=== PATIENT | male | born 2000 | race Caucasian/White ===

== ENCOUNTER 2019-08-22 22:35 | Emergency (ER) | payer OTHER ==
--- NOTE | 2019-08-22 23:26 | EDM.PDOC ---
ED HPI GENERAL MEDICAL PROBLEM - General Chief Complaint: Upper Extremity Injury/Pain Stated Complaint: R SHOULDER INJUERY Time Seen by Provider: 08/22/19 23:00 Source of Information: Reports: Patient History Limitations: Reports: No Limitations - History of Present Illness INITIAL COMMENTS - FREE TEXT/NARRATIVE: 19-year-old male running after a dog slipped and fell on hit his right shoulder on the ground. This happened about 12 hours ago, however he is having intense pain and cannot move his arm so wanted it checked. No other injury. Onset: Sudden Duration: Hour(s): (12 hours ago) Location: Reports: Upper Extremity, Right Associated Symptoms: Reports: No Other Symptoms Right Shoulder Pain Score (Numeric/FACES): 8 - Related Data Allergies Allergy/AdvReac Type Severity Reaction Status Date / Time Penicillins Allergy Hives Verified 08/22/19 22:58 tramadol Allergy Hives Verified 08/22/19 22:58 Home Meds: Home Meds NK [No Known Home Meds] 08/22/19 [History] Past Medical History Gastrointestinal History: Reports: Other (See Below) Other Gastrointestinal History: lipoma removal on upper abd Musculoskeletal History: Reports: Fracture Social & Family History - Family History Family Medical History: Noncontributory - Tobacco Use Smoking Status *Q: Current Every Day Smoker Years of Tobacco use: 4 Packs/Tins Daily: 0.5 - Caffeine Use Caffeine Use: Reports: Energy Drinks - Recreational Drug Use Recreational Drug Use: No Review of Systems - Review of Systems Review Of Systems: See Below Constitutional: Denies: Fever Respiratory: Reports: No Symptoms Cardiovascular: Reports: No Symptoms GI/Abdominal: Reports: No Symptoms Musculoskeletal: Reports: Shoulder Pain (Right side) Skin: Denies: Bruising Neurological: Denies: Paresthesia (No numbness or paresthesias to the arm) ED EXAM, GENERAL - Physical Exam Exam: See Below Exam Limited By: No Limitations General Appearance: Alert, No Apparent Distress Head: Atraumatic Neck: Non-Tender Respiratory/Chest: No Respiratory Distress Extremities: Other (Shoulders look symmetric grossly. On palpation is very tender over the distal right clavicle and AC joint area, but there is no step- off or deformity) Course - Vital Signs Last Recorded V/S: Last Vital Signs Temp 97.5 F 08/22/19 22:59 Pulse 76 08/22/19 22:59 Resp 16 04/04/20 22:59 BP 140/88 08/22/19 22:59 Pulse Ox 99 08/22/19 22:59 - Orders/Labs/Meds Orders: Active Orders 24 hr Category Date Time Status Shoulder Comp Rt [CR] Stat Exams 08/22/19 23:09 Taken - Re-Assessments/Exams Free Text/Narrative Re-Assessment/Exam: 08/22/19 23:26 X-ray of the right shoulder looks normal. Patient requested a sling. Departure - Departure Time of Disposition: 23:48 Disposition: Home, Self-Care 01 Clinical Impression: Contusion of right shoulder Qualifiers: Encounter type: initial encounter Qualified Code(s): S40.011A - Contusion of right shoulder, initial encounter - Discharge Information Instructions: Contusion, [id number] Referrals: PCP,None [Primary Care Provider] - Forms: ED Department Discharge Care Plan Goals: Wear sling for comfort for the next several days, a regular dose of ibuprofen or naproxen would be helpful. Take the arm out of the sling for gentle range of motion a few times a day and increase activity as tolerated. Recheck in 7 to 10 days if not improving satisfactorily. Sepsis Event Note - Evaluation Sepsis Screening Result: No Definite Risk - Focused Exam Vital Signs: Vital Signs Temp Pulse Resp BP Pulse Ox 08/22/19 22:59 97.5 F 76 16 140/88 99 08/22/19 22:54 97.5 F 76 16 140/88 99 Date Exam was Performed: 08/23/19 Time Exam was Performed: 01:59 - My Orders Last 24 Hours: My Active Orders 08/22/19 23:09 Shoulder Comp Rt [CR] Stat - Assessment/Plan Last 24 Hours: My Active Orders 08/22/19 23:09 Shoulder Comp Rt [CR] Stat
--- NOTE | 2019-08-24 10:14 | CR ---
Shoulder Comp Rt CLINICAL HISTORY: Fall, pain FINDINGS: There is no acute fracture or dislocation in the right shoulder. Articular surfaces are smooth Impression: Negative
== END 2019-08-22 23:49 | disposition home or self-care (01) ==
LOC: JP.ED 22:35
DX: S40.011A Contusion of right shoulder, initial encounter (principal); Z88.0 Allergy status to penicillin; Z88.6 Allergy status to analgesic agent; W01.0XXA Fall on same level from slipping, tripping and stumbling without subsequent striking against object, initial encounter
CPT/HCPCS: 73030-26-RT; 73030-RT; 99283-25

== ENCOUNTER 2019-08-25 20:22 | Emergency (ER) | payer OTHER ==
--- NOTE | 2019-08-25 20:44 | EDM.PDOC ---
ED HPI GENERAL MEDICAL PROBLEM - General Chief Complaint: Upper Extremity Injury/Pain Stated Complaint: RIGHT SHOULDER PAIN Time Seen by Provider: 08/25/19 20:30 Source of Information: Reports: Patient History Limitations: Reports: No Limitations - History of Present Illness INITIAL COMMENTS - FREE TEXT/NARRATIVE: 19-year-old male returns with right shoulder pain. He was seen 3 days ago and likely has an AC injury, although a rotator cuff injury is possible as well. X- ray was negative, he returns today for pain control and an inability to abduct the arm past 10 or 20 degrees. No paresthesias. Onset: Sudden Duration: Day(s): (3 days ago) Location: Reports: Upper Extremity, Right Associated Symptoms: Reports: No Other Symptoms Right Upper Shoulder Pain Score (Numeric/FACES): 7 - Related Data Allergies Allergy/AdvReac Type Severity Reaction Status Date / Time Penicillins Allergy Hives Verified 08/25/19 20:37 tramadol Allergy Hives Verified 08/25/19 20:37 Home Meds: Home Meds Hydrocodone/Acetaminophen [Hydrocodon-Acetaminophen 5-325] 1 tab PO Q6H [History] Past Medical History Gastrointestinal History: Reports: Other (See Below) Other Gastrointestinal History: lipoma removal on upper abd Musculoskeletal History: Reports: Fracture Social & Family History - Family History Family Medical History: Noncontributory - Caffeine Use Caffeine Use: Reports: Energy Drinks Review of Systems - Review of Systems Review Of Systems: See Below Constitutional: Denies: Fever Respiratory: Reports: No Symptoms Cardiovascular: Reports: No Symptoms Musculoskeletal: Denies: Neck Pain Skin: Denies: Bruising, Rash, Erythema Neurological: Reports: No Symptoms ED EXAM, GENERAL - Physical Exam Exam: See Below Exam Limited By: No Limitations General Appearance: Alert, No Apparent Distress Neck: Supple, Non-Tender Respiratory/Chest: No Respiratory Distress Extremities: Other (Sling was removed, shoulder reexamined. Patient is still real tender over the AC joint area but there is no step-off or crepitus. He is unable to actively abduct his arm past 20 degrees, and has marked difficulty holding his arm out at 90 degrees after passive abduction.) Course - Vital Signs Last Recorded V/S: Last Vital Signs Temp 97.3 F 08/25/19 20:34 Pulse 82 08/25/19 20:34 Resp 16 08/25/19 20:34 BP 145/90 H 08/25/19 20:34 Pulse Ox 97 08/25/19 20:34 - Orders/Labs/Meds Orders: Active Orders 24 hr Category Date Time Status Consult to Orthopedic Clinic [CONS] Routine Cons 08/25/19 20:34 Active - Re-Assessments/Exams Free Text/Narrative Re-Assessment/Exam: 08/25/19 20:43 Patient was given an additional 10 hydrocodone to use for extra pain control, and I asked him to see Dr. Espitia in consultation over the next 48 hours. Information was obtained to contact the patient and hopefully he can be seen in the next few days. He can continue to increase activity if tolerated. Departure - Departure Time of Disposition: 20:53 Disposition: Home, Self-Care 01 Clinical Impression: Sprain of right shoulder Qualifiers: Encounter type: subsequent encounter Shoulder sprain type: other part of shoulder region Qualified Code(s): S43.491D - Other sprain of right shoulder joint, subsequent encounter - Discharge Information Instructions: Shoulder Sprain Referrals: PCP,None [Primary Care Provider] - Forms: ED Department Discharge Care Plan Goals: Continue to wear the sling for comfort, and anti-inflammatory is beneficial and add stronger pain medication if needed. Recheck with Dr. Espitia in the next few days as discussed, they should be contacting you tomorrow for a time. Sepsis Event Note - Evaluation Sepsis Screening Result: No Definite Risk - Focused Exam Vital Signs: Vital Signs Temp Pulse Resp BP Pulse Ox 08/25/19 20:34 97.3 F 82 16 145/90 H 97 Date Exam was Performed: 08/25/19 Time Exam was Performed: 21:57 - My Orders Last 24 Hours: My Active Orders 08/25/19 20:34 Consult to Orthopedic Clinic [CONS] Routine - Assessment/Plan Last 24 Hours: My Active Orders 08/25/19 20:34 Consult to Orthopedic Clinic [CONS] Routine
== END 2019-08-25 20:53 | disposition home or self-care (01) ==
LOC: JP.ED 20:22
DX: S93.491A Sprain of other ligament of right ankle, initial encounter (principal); Z88.0 Allergy status to penicillin; Z88.5 Allergy status to narcotic agent; X58.XXXA Exposure to other specified factors, initial encounter
CPT/HCPCS: 99283

== ENCOUNTER 2019-11-19 23:36 | Emergency (ER) | payer OTHER ==
--- NOTE | 2019-11-20 02:00 | EDM.PDOC ---
ED HPI GENERAL MEDICAL PROBLEM - General Chief Complaint: Upper Extremity Injury/Pain Stated Complaint: RIGHT SHOULDER INJURY Time Seen by Provider: 11/20/19 01:25 Source of Information: Reports: Patient History Limitations: Reports: No Limitations - History of Present Illness INITIAL COMMENTS - FREE TEXT/NARRATIVE: Patient presents for evaluation of pain in the right shoulder region after he slipped getting out of the shower tonight and landed on his right shoulder. There was no loss of consciousness. Since that time, if he keeps his right arm close to his side, it feels better but not pain-free. Overhead movements of the arm are extremely uncomfortable but rotational movements of the arm are not too bad. The left side was not injured. He has some discomfort in the vicinity of the right shoulder blade but the majority of the pain is lateral to the right shoulder. Onset: Today Duration: Hour(s): Location: Reports: Upper Extremity, Right Quality: Reports: Ache, Dull Severity: Moderate Improves with: Reports: None Worsens with: Reports: Movement Associated Symptoms: Reports: No Other Symptoms Right Shoulder Pain Score (Numeric/FACES): 7 - Related Data Allergies Allergy/AdvReac Type Severity Reaction Status Date / Time acetaminophen Allergy Vomiting Verified 11/19/19 23:56 [From Tylenol-Codeine #3] codeine Allergy Vomiting Verified 11/19/19 23:56 [From Tylenol-Codeine #3] Penicillins Allergy Hives Verified 08/25/19 20:37 tramadol Allergy Hives Verified 08/25/19 20:37 Home Meds: Home Meds Hydrocodone/Acetaminophen [Hydrocodon-Acetaminophen 5-325] 1 tab PO Q6H 08/25/19 [History] Ketorolac [Toradol] 10 mg PO TID PRN 11/19/19 [History] Past Medical History Gastrointestinal History: Reports: Other (See Below) Other Gastrointestinal History: lipoma removal on upper abd Musculoskeletal History: Reports: Fracture, Other (See Below) Other Musculoskeletal History: recurrent right shoulder injuries Neurological History: Reports: Seizure - Past Surgical History GI Surgical History: Reports: Hernia, Inguinal Social & Family History - Family History Family Medical History: Noncontributory - Tobacco Use Smoking Status *Q: Current Every Day Smoker Years of Tobacco use: 6 Packs/Tins Daily: 0.5 Second Hand Smoke Exposure: No - Caffeine Use Caffeine Use: Reports: None - Recreational Drug Use Recreational Drug Use: No Review of Systems - Review of Systems Review Of Systems: Comprehensive ROS is negative, except as noted in HPI. ED EXAM, GENERAL - Physical Exam Exam: See Below Free Text/Narrative:: This is a comfortable appearing male seated on the table in room 2. Exam Limited By: No Limitations General Appearance: Alert, No Apparent Distress Respiratory/Chest: No Respiratory Distress, No Accessory Muscle Use Cardiovascular: Regular Rate, Rhythm, Tachycardia Back Exam: Other (There is diffuse discomfort over the right scapula.) Extremities: Limited Range of Motion (Attempts at passive upward extension of the right humerus are met with pain. Internal and external rotation of the humerus with the arm hanging straight down are not particularly uncomfortable. The acromioclavicular joint is tender but no crepitus is felt.) Course - Vital Signs Last Recorded V/S: Last Vital Signs Temp 36.0 C L 11/19/19 23:58 Pulse 104 H 11/19/19 23:58 Resp 16 11/19/19 23:58 BP 144/92 H 11/19/19 23:58 Pulse Ox 97 11/19/19 23:58 - Re-Assessments/Exams Free Text/Narrative Re-Assessment/Exam: 11/20/19 03:21 X-ray of right shoulder ordered and reviewed by me shows no acute findings. The AC joint is normal in appearance. I think he has contused and strained the shoulder but do not see anything alarming. I recommend ice packs to the affected area 20 minutes off and on. He should use ibuprofen 800 mg 3 times a day or naproxen 440 mg twice a day for discomfort. 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 Questions answered. Departure - Departure Time of Disposition: 03:24 Disposition: Home, Self-Care 01 Clinical Impression: Contusion of shoulder, right Qualifiers: Encounter type: initial encounter Qualified Code(s): S40.011A - Contusion of right shoulder, initial encounter Sprain of right shoulder Qualifiers: Encounter type: subsequent encounter Shoulder sprain type: other part of shoulder region Qualified Code(s): S43.491D - Other sprain of right shoulder joint, subsequent encounter - Discharge Information Instructions: Contusion, [id number] Referrals: PCP,None [Primary Care Provider] - Forms: ED Department Discharge Additional Instructions: Cold packs to painful area 20 minutes off and on. Avoid painful movements of the shoulder to the extent possible. Ibuprofen 800 mg 3 times a day or naproxen 440 mg twice a day regularly over the next 5 days for pain. Recheck in primary care if not improved in 7 to 10 days. Sepsis Event Note (ED) - Evaluation Sepsis Screening Result: No Definite Risk - Focused Exam Vital Signs: Vital Signs Temp Pulse Resp BP Pulse Ox 11/19/19 23:58 36.0 C L 104 H 16 144/92 H 97 11/19/19 23:45 36.0 C L 104 H 16 144/92 H 97
--- NOTE | 2019-11-20 02:21 | CRLCR ---
INDICATION: Fall onto right shoulder region pain TECHNIQUE: Shoulder radiograph 3 views right COMPARISON: 08/22/2019 FINDINGS: Bone: No acute fractures or aggressive bone lesions are identified. Joint: The glenohumeral joint is unremarkable. The acromioclavicular joint is unremarkable. Soft tissue: Unremarkable. The visualized hemithorax is unremarkable in appearance. No radiopaque foreign bodies are seen. IMPRESSION: 1. No acute osseous injuries or abnormalities are noted. Dictated by: Mayur Soares MD @ 11/20/2019 02:20:51 (Electronically Signed)
== END 2019-11-20 02:37 | disposition home or self-care (01) ==
LOC: JP.ED 23:36
DX: S43.491D Other sprain of right shoulder joint, subsequent encounter (principal); F17.210 Nicotine dependence, cigarettes, uncomplicated; R00.0 Tachycardia, unspecified; Z88.0 Allergy status to penicillin; Z88.5 Allergy status to narcotic agent; Z88.6 Allergy status to analgesic agent; W01.0XXD Fall on same level from slipping, tripping and stumbling without subsequent striking against object, subsequent encounter
CPT/HCPCS: 73030-RT; 99283-25

== ENCOUNTER 2019-11-20 17:07 | Emergency (ER) | payer OTHER ==
--- NOTE | 2019-11-20 19:13 | EDM.PDOC ---
ED HPI GENERAL MEDICAL PROBLEM - General Chief Complaint: Upper Extremity Injury/Pain Stated Complaint: R SHOULDER PAIN Time Seen by Provider: 11/20/19 19:12 Source of Information: Reports: Patient History Limitations: Reports: No Limitations - History of Present Illness INITIAL COMMENTS - FREE TEXT/NARRATIVE: 19-year-old male injured his right shoulder last night when he fell into the wall while taking a shower. He was seen in the ER by Dr. Torres and x-ray was read as normal by the radiologist. The patient was advised to take OTC analgesics. He returns today because of distant and increased pain. He has increased pain with any movement of the right arm. He denies any injuries. He denies any neck pain. He has no prior neck problems. Right Shoulder Pain Score (Numeric/FACES): 8 - Related Data Allergies Allergy/AdvReac Type Severity Reaction Status Date / Time acetaminophen Allergy Vomiting Verified 11/20/19 18:50 [From Tylenol-Codeine #3] codeine Allergy Vomiting Verified 11/20/19 18:50 [From Tylenol-Codeine #3] Penicillins Allergy Hives Verified 11/20/19 18:50 tramadol Allergy Hives Verified 11/20/19 18:50 Home Meds: Home Meds Ketorolac [Toradol] 10 mg PO TID PRN 11/19/19 [History] Past Medical History Gastrointestinal History: Reports: Other (See Below) Other Gastrointestinal History: lipoma removal on upper abd Musculoskeletal History: Reports: Fracture, Other (See Below) Other Musculoskeletal History: recurrent right shoulder injuries Neurological History: Reports: Seizure - Past Surgical History GI Surgical History: Reports: Hernia, Inguinal Social & Family History - Family History Family Medical History: Noncontributory - Tobacco Use Smoking Status *Q: Current Every Day Smoker Years of Tobacco use: 5 Packs/Tins Daily: 0.5 - Caffeine Use Caffeine Use: Reports: None - Recreational Drug Use Recreational Drug Use: No Review of Systems - Review of Systems Review Of Systems: See Below Constitutional: Reports: No Symptoms Respiratory: Reports: No Symptoms Cardiovascular: Reports: No Symptoms Musculoskeletal: Reports: Other (Shoulder pain) Skin: Reports: No Symptoms Neurological: Denies: Numbness, Weakness ED EXAM, GENERAL - Physical Exam Exam: See Below Exam Limited By: No Limitations General Appearance: Alert, WD/WN, No Apparent Distress Peripheral Pulses: 4+: Radial (R) Extremities: Other (The patient has a normal-appearing right shoulder on inspection. External rotation is almost to 90 degrees as is abduction. He has tenderness on palpation of the anterior shoulder. No bony deformities were palpated.) Course - Vital Signs Text/Narrative:: This patient presents with a right shoulder injury sustained last night. He had an x-ray when he visited the ER last night and it was read as normal by the radiologist. He has pain with movement. His exam shows nearly 90 degrees of abduction. He has some restriction in external rotation. Palpation of the arm reveals no bony abnormalities. Neurovascular exam is normal and radial pulses good. The patient has a right shoulder strain. He was given a sling which she will use for couple days and then exercises as tolerated. He was given 4 tablets of Vicodin 5/325 mg 1 or 2 tablets every 6 hours as needed for pain. He can use OTC analgesics. He will follow-up with orthopedics or primary care next week if he is not improving. Last Recorded V/S: Last Vital Signs Temp 34.7 C L 11/20/19 18:51 Pulse 71 11/20/19 18:51 Resp 13 11/20/19 18:51 BP 127/85 11/20/19 18:51 Pulse Ox 96 11/20/19 18:51 - Orders/Labs/Meds Orders: Active Orders 24 hr Category Date Time Status DME for Discharge [COMM] Stat Oth 11/20/19 19:11 Ordered Departure - Departure Time of Disposition: 19:15 Disposition: Admitted As Inpatient 65 Condition: Good Clinical Impression: Right shoulder strain - Discharge Information *PRESCRIPTION DRUG MONITORING PROGRAM REVIEWED*: Yes *COPY OF PRESCRIPTION DRUG MONITORING REPORT IN PATIENT CAMMY: No Referrals: PCP,None [Primary Care Provider] - Forms: ED Department Discharge Additional Instructions: The arm sling as needed. Take Vicodin as needed for pain. Follow-up with her primary care provider next week if you have persistent problems and see no improvement. Return to the ER as needed. Sepsis Event Note (ED) - Evaluation Sepsis Screening Result: No Definite Risk - Focused Exam Vital Signs: Vital Signs Temp Pulse Resp BP Pulse Ox 11/20/19 18:51 34.7 C L 71 13 127/85 96 11/20/19 18:46 34.7 C L 71 13 127/85 96 - My Orders Last 24 Hours: My Active Orders 11/20/19 19:11 DME for Discharge [COMM] Stat - Assessment/Plan Last 24 Hours: My Active Orders 11/20/19 19:11 DME for Discharge [COMM] Stat
== END 2019-11-20 19:35 | disposition critical access hospital (66) ==
LOC: JP.ED 17:07
DX: S46.911A Strain of unspecified muscle, fascia and tendon at shoulder and upper arm level, right arm, initial encounter (principal); F17.210 Nicotine dependence, cigarettes, uncomplicated; Z88.5 Allergy status to narcotic agent; Z88.0 Allergy status to penicillin; Z79.899 Other long term (current) drug therapy; W18.2XXA Fall in (into) shower or empty bathtub, initial encounter
CPT/HCPCS: 99283

== ENCOUNTER 2019-11-24 20:40 | Emergency (ER) | payer OTHER ==
--- NOTE | 2019-11-24 21:32 | EDM.PDOC ---
ED HPI GENERAL MEDICAL PROBLEM - General Chief Complaint: Upper Extremity Injury/Pain Stated Complaint: RIGHT SHOULDER PAIN Time Seen by Provider: 11/24/19 21:32 Source of Information: Reports: Patient History Limitations: Reports: No Limitations - History of Present Illness INITIAL COMMENTS - FREE TEXT/NARRATIVE: 19 years old male patient presented to the ER with chief complaint of right shoulder pain. Patient had a fall and was seen few days ago and had a negative x-ray. Was given prescription for [place] and NSAIDs. Patient stated it was helping but he ran out of [place] today. Complaining of continuous pain with any movement. No swelling or erythema or deformity. No other complaints. - Related Data Allergies Allergy/AdvReac Type Severity Reaction Status Date / Time acetaminophen Allergy Vomiting Verified 11/24/19 21:28 [From Tylenol-Codeine #3] codeine Allergy Vomiting Verified 11/24/19 21:28 [From Tylenol-Codeine #3] Penicillins Allergy Hives Verified 11/24/19 21:28 tramadol Allergy Hives Verified 11/24/19 21:28 Home Meds: Home Meds Ketorolac [Toradol] 10 mg PO TID PRN 11/19/19 [History] Hydrocodone/Acetaminophen [Hydrocodon-Acetaminophen 5-325] 1 each PO ASDIRECTED 11/24/19 [History] Past Medical History Gastrointestinal History: Reports: Other (See Below) Other Gastrointestinal History: lipoma removal on upper abd Musculoskeletal History: Reports: Fracture, Other (See Below) Other Musculoskeletal History: recurrent right shoulder injuries Neurological History: Reports: Seizure - Past Surgical History GI Surgical History: Reports: Hernia, Inguinal Social & Family History - Family History Family Medical History: Noncontributory - Caffeine Use Caffeine Use: Reports: None Review of Systems - Review of Systems Review Of Systems: Comprehensive ROS is negative, except as noted in HPI. ED EXAM, GENERAL - Physical Exam Exam: See Below Exam Limited By: No Limitations General Appearance: Alert, WD/WN, No Apparent Distress Nose: Normal Inspection, Normal Mucosa, No Blood Head: Atraumatic, Normocephalic Neck: Normal Inspection, Supple, Non-Tender, Full Range of Motion Respiratory/Chest: No Respiratory Distress, Lungs Clear, Normal Breath Sounds, No Accessory Muscle Use, Chest Non-Tender Cardiovascular: Normal Peripheral Pulses, Regular Rate, Rhythm, No Edema, No Gallop, No JVD, No Murmur, No Rub Extremities: Normal Inspection, Limited Range of Motion, Other (Tenderness on palpation of the right shoulder. No erythema or swelling or deformity. CMS intact. Pain limitation of the range of motion.). No: Joint Swelling, Increased Warmth, Mottled Course - Vital Signs Last Recorded V/S: Last Vital Signs Temp 36.3 C 11/24/19 21:34 Pulse 73 11/24/19 21:34 Resp 16 11/24/19 21:34 BP 130/88 11/24/19 21:34 Pulse Ox 97 11/24/19 21:34 - Re-Assessments/Exams Free Text/Narrative Re-Assessment/Exam: 11/24/19 21:44 Patient was seen and examined shortly after arrival. Stable. Possible rotator cuff injury. Advised follow-up was his primary doctor for MRI of the right shoulder or orthopedic. Stated Tylenol and ibuprofen not helping. Requesting [place]. Given 6 more pills. 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 Maximum total amount of acetaminophen Jesika is for gram. Advised to ice it. Continue ibuprofen. Come back for any concern or any worsening symptom. Patient agrees with the plan. Stable for discharge. Departure - Departure Time of Disposition: 21:45 Disposition: Home, Self-Care 01 Condition: Good Clinical Impression: Shoulder pain, right - Discharge Information Referrals: PCP,None [Primary Care Provider] - Forms: ED Department Discharge Care Plan Goals: Advised follow-up was his primary doctor for MRI of the right shoulder or orth opedic. Stated Tylenol and ibuprofen not helping. Requesting [place]. Given 6 more pills. 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 Maximum total amount of acetaminophen Jesika is for gram. Advised to ice it. Continue ibuprofen. Come back for any concern or any worsening symptom. Patient agrees with the plan. Sepsis Event Note (ED) - Focused Exam Vital Signs: Vital Signs Temp Pulse Resp BP Pulse Ox 11/24/19 21:34 36.3 C 73 16 130/88 97 11/24/19 21:26 36.3 C 73 16 130/88 97 - Assessment/Plan Plan: Advised follow-up was his primary doctor for MRI of the right shoulder or orthopedic. Stated Tylenol and ibuprofen not helping. Requesting [place]. Given 6 more pills. 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 Maximum total amount of acetaminophen Jesika is for gram. Advised to ice it. Continue ibuprofen. Come back for any concern or any worsening symptom. Patient agrees with the plan.
== END 2019-11-24 22:03 | disposition home or self-care (01) ==
LOC: JP.ED 20:40
DX: M25.511 Pain in right shoulder (principal); Z88.5 Allergy status to narcotic agent; Z88.0 Allergy status to penicillin; Z88.6 Allergy status to analgesic agent
CPT/HCPCS: 99283

== ENCOUNTER 2019-12-27 20:59 | Emergency (ER) | payer OTHER ==
[2019-12-27] MEDS ORDERED: Acetaminophen 325 MG Tab PO ONE (22:00)
--- NOTE | 2019-12-27 22:03 | EDM.PDOC ---
ED HPI GENERAL MEDICAL PROBLEM - General Chief Complaint: Upper Extremity Injury/Pain Stated Complaint: FALL/RT SHOULDER PAIN Time Seen by Provider: 12/27/19 21:57 Source of Information: Reports: Patient, RN Notes Reviewed History Limitations: Reports: No Limitations - History of Present Illness INITIAL COMMENTS - FREE TEXT/NARRATIVE: 19-year-old gentleman presents emergency department a complaint of right shoulder pain, he injured himself earlier today when he fell on outstretched hand injuring his shoulder now he has difficulty raising his arm he can do about 15 degrees abduction before pain - Related Data Allergies Allergy/AdvReac Type Severity Reaction Status Date / Time acetaminophen Allergy Vomiting Verified 12/27/19 21:24 [From Tylenol-Codeine #3] codeine Allergy Vomiting Verified 12/27/19 21:24 [From Tylenol-Codeine #3] Penicillins Allergy Hives Verified 12/27/19 21:24 tramadol Allergy Hives Verified 12/27/19 21:24 Home Meds: Home Meds Ketorolac [Toradol] 10 mg PO TID PRN 11/19/19 [History] Past Medical History Gastrointestinal History: Reports: Other (See Below) Other Gastrointestinal History: lipoma removal on upper abd Musculoskeletal History: Reports: Fracture, Other (See Below) Other Musculoskeletal History: recurrent right shoulder injuries Neurological History: Reports: Seizure - Past Surgical History GI Surgical History: Reports: Hernia, Inguinal Social & Family History - Family History Family Medical History: Noncontributory - Tobacco Use Smoking Status *Q: Current Every Day Smoker Years of Tobacco use: 5 Packs/Tins Daily: 0.5 - Caffeine Use Caffeine Use: Reports: None Review of Systems - Review of Systems Review Of Systems: See Below Constitutional: Reports: No Symptoms Musculoskeletal: Reports: Shoulder Pain ED EXAM, GENERAL - Physical Exam Exam: See Below Free Text/Narrative:: Examination right shoulder I do not appreciate any specific point tenderness there is no erythema there is no edema there is no deformity noted has about 10 to 15 degrees abduction for movement before pain Exam Limited By: No Limitations General Appearance: Alert, WD/WN, No Apparent Distress Course - Vital Signs Last Recorded V/S: Last Vital Signs Temp 98.2 F 12/27/19 21:29 Pulse 70 12/27/19 21:29 Resp 16 12/27/19 21:29 BP 140/94 H 12/27/19 21:29 Pulse Ox 98 12/27/19 21:29 - Orders/Labs/Meds Orders: Active Orders 24 hr Category Date Time Status Notify Provider Consults [RC] ASDIRECTED Care 12/27/19 22:15 Ordered Consult to Orthopedic Clinic [CONS] Routine Cons 12/27/19 22:15 Ordered Consult to Physician [CONS] Routine Cons 12/27/19 22:15 Ordered Shoulder Comp Rt [CR] Stat Exams 12/27/19 22:00 Ordered Meds: Medications Discontinued Medications Generic Name Dose Route Start Last Admin Trade Name Julisa PRN Reason Stop Dose Admin Acetaminophen 650 mg 12/27/19 22:00 12/27/19 22:04 Tylenol PO 12/27/19 22:01 650 mg NOW ONE Administration - Re-Assessments/Exams Free Text/Narrative Re-Assessment/Exam: 12/27/19 22:08 He has had a total of 5 visits to the emergency department this year for right shoulder pain all describing some type of a fall and then follow-up because pain was not a control has received narcotics about half of the occasion. I did re view the [place] prescription drug monitoring program his overdose risk is at 200 last 3 prescriptions for narcotics were from this emergency department. Departure - Departure Time of Disposition: 22:17 Disposition: Home, Self-Care 01 Condition: Fair Clinical Impression: Shoulder pain, right Qualifiers: Chronicity: chronic Qualified Code(s): M25.511 - Pain in right shoulder; G89.29 - Other chronic pain - Discharge Information Instructions: Shoulder Pain Referrals: PCP,None [Primary Care Provider] - Forms: ED Department Discharge Additional Instructions: Continue to use your Toradol as needed for pain control, the orthopedic clinic will call you for an appointment time tomorrow morning Sepsis Event Note (ED) - Evaluation Sepsis Screening Result: No Definite Risk - Focused Exam Vital Signs: Vital Signs Temp Pulse Resp BP Pulse Ox 12/27/19 21:29 98.2 F 70 16 140/94 H 98 12/27/19 21:08 98.2 F 70 16 140/94 H 98 - My Orders Last 24 Hours: My Active Orders 12/27/19 22:00 Shoulder Comp Rt [CR] Stat 12/27/19 22:15 Notify Provider Consults [RC] ASDIRECTED Consult to Orthopedic Clinic [CONS] Routine Consult to Physician [CONS] Routine - Assessment/Plan Last 24 Hours: My Active Orders 12/27/19 22:00 Shoulder Comp Rt [CR] Stat 12/27/19 22:15 Notify Provider Consults [RC] ASDIRECTED Consult to Orthopedic Clinic [CONS] Routine Consult to Physician [CONS] Routine Plan: Assessment Acuity = acute on chronic Site and laterality = right shoulder pain Etiology = multiple traumatic falls Manifestations = none Location of injury = Home Lab values = x-ray reveals no fracture official read radiologist pending Plan Consultation set up with orthopedics this week continue to use anti- inflammatories for pain control This note was dictated using [employer] voice recognition software please call with any questions on syntax or grammar.
--- NOTE | 2019-12-28 09:41 | CR ---
Shoulder Comp Rt CLINICAL HISTORY: Pain, fall FINDINGS: There is no acute fracture or dislocation in the right shoulder. Articular surfaces are smooth Impression: Negative
== END 2019-12-27 22:38 | disposition home or self-care (01) ==
LOC: JP.ED 20:59
DX: M25.511 Pain in right shoulder (principal); G89.29 Other chronic pain; F17.210 Nicotine dependence, cigarettes, uncomplicated; Z88.6 Allergy status to analgesic agent; Z88.5 Allergy status to narcotic agent; Z88.0 Allergy status to penicillin; W19.XXXA Unspecified fall, initial encounter
CPT/HCPCS: 73030; 99283; A9270

== ENCOUNTER 2019-12-28 16:04 | Emergency (ER) | payer OTHER ==
[2019-12-28] MEDS ORDERED: Bupivacaine 0.5% 10 ML SDV ONE (18:04)
[2019-12-28] MEDS ORDERED: Bupivacaine 0.5% 10 ML SDV INJECT ONE (18:05)
[2019-12-28] MEDS ORDERED: Triamcinolone Acetonide 40 MG/ML 1 ML MDV INJECT ONE (18:05)
[2019-12-28] MEDS ORDERED: Triamcinolone Acetonide 40 MG/ML 1 ML MDV ONE (18:11)
[2019-12-28] MEDS ORDERED: Ketorolac 10 MG Tab PO PRN (18:20)
--- NOTE | 2019-12-28 18:28 | EDM.PDOC ---
ED HPI GENERAL MEDICAL PROBLEM - General Chief Complaint: Upper Extremity Injury/Pain Stated Complaint: right shoulder pain Time Seen by Provider: 12/28/19 18:00 Source of Information: Reports: Patient, Old Records History Limitations: Reports: No Limitations - History of Present Illness INITIAL COMMENTS - FREE TEXT/NARRATIVE: The patient reports that he tripped over a tire on the ground while working on a car yesterday landing on his outstretched right hand causing injury to the right shoulder. The patient reportedly has previously injured this shoulder about 1 month ago by similar method. Review of his records report that he frequently presents to the ED with this injury and has returned for inadequate pain control until he receives narcotic pain medication as noted in Dr Officer's note on 12/27/2019. Onset: Sudden Onset Date: 12/27/19 Duration: No: Improving Location: Reports: Upper Extremity, Right (Right Shoulder) Quality: Reports: Ache, Same as Previous Episode, Throbbing Severity: Moderate Improves with: Reports: None Worsens with: Reports: Movement Context: Reports: Trauma (The patient reports he fell tripping over a tire while working on a care landing on his outstretched right hand causing pain in the right shoulder. Patient previously injured this shoulder 1 month ago with a similar injury.) Associated Symptoms: Reports: No Other Symptoms Treatments CLIP BAKER: Reports: Other Medication(s) (Toradol 10 mg p.o., sling immobilization.) Right Shoulder Pain Score (Numeric/FACES): 8 - Related Data Allergies Allergy/AdvReac Type Severity Reaction Status Date / Time acetaminophen Allergy Vomiting Verified 12/28/19 18:22 [From Tylenol-Codeine #3] codeine Allergy Vomiting Verified 12/28/19 18:22 [From Tylenol-Codeine #3] Penicillins Allergy Hives Verified 12/28/19 18:22 tramadol Allergy Hives Verified 12/28/19 18:22 Home Meds: Home Meds Ketorolac [Toradol] 10 mg PO TID PRN 11/19/19 [History] Hydrocodone/Acetaminophen [Hydrocodon-Acetaminophen 5-325] 1 each PO Q6HR PRN #2 tablet 12/28/19 [Rx] Past Medical History Gastrointestinal History: Reports: Other (See Below) Other Gastrointestinal History: lipoma removal on upper abd Musculoskeletal History: Reports: Fracture, Other (See Below) Other Musculoskeletal History: recurrent right shoulder injuries Neurological History: Reports: Seizure - Past Surgical History GI Surgical History: Reports: Hernia, Inguinal Social & Family History - Family History Family Medical History: Noncontributory - Caffeine Use Caffeine Use: Reports: None Review of Systems - Review of Systems Review Of Systems: Comprehensive ROS is negative, except as noted in HPI. Constitutional: Reports: No Symptoms Eyes: Reports: No Symptoms Ears: Reports: No Symptoms Nose: Reports: No Symptoms Mouth/Throat: Reports: No Symptoms Respiratory: Reports: No Symptoms Cardiovascular: Reports: No Symptoms GI/Abdominal: Reports: No Symptoms Genitourinary: Reports: No Symptoms Musculoskeletal: Reports: Shoulder Pain (Right shoulder pain and reduced range of motion) Skin: Reports: No Symptoms Neurological: Reports: No Symptoms Psychiatric: Reports: No Symptoms ED EXAM, GENERAL - Physical Exam Exam: See Below Exam Limited By: No Limitations General Appearance: Alert, Anxious Head: Atraumatic Neck: Normal Inspection Peripheral Pulses: 2+: Brachial (R), Radial (R) Extremities: Arm Pain (Pain with palpation over the right subacromial bursa, deltoid, supraspinatus insertion and teres minor insertion.), Limited Range of Motion (Patient unable to raise the right arm beyond 75 degrees flexion or abduction or maintain the arm at this level for more than a minute due to pain.). No: Slow Capillary Refill, Joint Swelling, Increased Warmth Neurological: Alert, Oriented, No Motor/Sensory Deficits Course - Vital Signs Last Recorded V/S: Last Vital Signs Temp 36.0 C L 12/28/19 18:21 Pulse 60 12/28/19 18:21 Resp 13 12/28/19 18:21 BP 125/79 12/28/19 18:21 Pulse Ox 98 12/28/19 18:21 - Orders/Labs/Meds Orders: Active Orders 24 hr Category Date Time Status Ketorolac [Toradol] Med 12/28/19 18:20 Active 10 mg PO TID PRN Medication Orders Ketorolac Tromethamine (Toradol) 10 mg PO TID PRN PRN Reason: Pain Stop: 01/02/20 18:21 Meds: Medications Generic Name Dose Route Start Last Admin Trade Name Freq PRN Reason Stop Dose Admin Ketorolac Tromethamine 10 mg 12/28/19 18:20 Toradol PO 01/02/20 18:21 TID PRN Pain Discontinued Medications Generic Name Dose Route Start Last Admin Trade Name Julisa PRN Reason Stop Dose Admin Bupivacaine HCl Confirm 12/28/19 18:04 12/28/19 19:17 Sensorcaine-Mpf 0.5% Administered 12/28/19 18:05 Not Given Dose 10 ml .ROUTE .STK-MED ONE Bupivacaine HCl 4 ml 12/28/19 18:05 12/28/19 18:25 Sensorcaine-Mpf 0.5% INJECT 12/28/19 18:06 4 ml ONETIME ONE Administration Triamcinolone Acetonide Confirm 12/28/19 18:11 12/28/19 19:17 Kenalog-40 Administered 12/28/19 18:12 Not Given Dose 40 mg .ROUTE .STK-MED ONE Triamcinolone Acetonide 40 mg 12/28/19 18:05 12/28/19 18:26 Kenalog-40 INJECT 12/28/19 18:06 40 mg ASDIRECTED ONE Administration - Re-Assessments/Exams Free Text/Narrative Re-Assessment/Exam: 12/28/19 18:40 The patient was reassessed 30 minutes after injection into the right subacromial bursa and was still complaining of significant pain, but it is improving from an 8/10 down to a 6-7/10. 12/28/19 18:43 Departure - Departure Time of Disposition: 19:30 Disposition: Home, Self-Care 01 Preliminary Cause of *Q: Respiratory Failure Condition: Good Clinical Impression: Subacromial bursitis of right shoulder joint - Discharge Information *PRESCRIPTION DRUG MONITORING PROGRAM REVIEWED*: Yes *COPY OF PRESCRIPTION DRUG MONITORING REPORT IN PATIENT CAMMY: No Prescriptions: Hydrocodone/Acetaminophen [Hydrocodon-Acetaminophen 5-325] 1 each PO Q6HR PRN #2 tablet PRN Reason: Pain (Severe 7-10) Instructions: Shoulder Pain, [id number], Bursitis, How To Use a Sling, [id number] Referrals: PCP,None [Primary Care Provider] - Forms: ED Department Discharge Sepsis Event Note (ED) - Evaluation Sepsis Screening Result: No Definite Risk - Focused Exam Vital Signs: Vital Signs Temp Pulse Resp BP Pulse Ox 12/28/19 18:21 36.0 C L 60 13 125/79 98 12/28/19 17:44 36.0 C L 60 13 125/79 98 - Problem List & Annotations (1) Shoulder pain, right SNOMED Code(s): 32355375, 55716600 Code(s): M25.511 - PAIN IN RIGHT SHOULDER Status: Acute Current Visit: Yes Onset Date: ~12/27/19 Qualifiers: Chronicity: chronic Qualified Code(s): M25.511 - Pain in right shoulder; G89.29 - Other chronic pain - Problem List Review Problem List Initiated/Reviewed/Updated: Yes - My Orders Last 24 Hours: My Active Orders 12/28/19 18:20 Ketorolac [Toradol] 10 mg PO TID PRN - Assessment/Plan Last 24 Hours: My Active Orders 12/28/19 18:20 Ketorolac [Toradol] 10 mg PO TID PRN Plan: The patient received a kenalog/bupivicaine injection into the right subacromial bursa for acute bursitis. He has a follow-up with Ortho in 4 days for re- evaluation. He still is complaining of 7/10 pain so reluctantly I will send him home with a couple of hydrocodone for pain control until the bursa injection fully works. I did explain to him that this would only be a one time dose. Indications to return to the ED were discussed and the patient is suitable for discharge in satisfactory condition. Arthrocentesis - Arthrocentesis Arthrocentesis Indication: other (acute right subacromial bursitis) Location: right, shoulder, bursa Prep: Chlorhexidine Needle: other (23 ga 1 inch) Medication Instilled: marcaine mls: (4ml), triamcinolone mgs: (40) Complications: No Dressing: gauze
== END 2019-12-28 19:42 | disposition home or self-care (01) ==
LOC: JP.ED 16:04
DX: M75.51 Bursitis of right shoulder (principal); Z88.6 Allergy status to analgesic agent; Z88.5 Allergy status to narcotic agent; Z88.0 Allergy status to penicillin
CPT/HCPCS: 20610; 99283; J3301; J3490